=== PATIENT | male | born 1980 | race Caucasian/White ===

== ENCOUNTER 2020-07-26 08:23 | Emergency (ER) | payer OTHER ==
[2020-07-26 08:42] VITALS: BP 137/96; PULSE 87; TEMP 98.4; BMI 29.7
[2020-07-26] MEDS ORDERED: IBUPROFEN 600 MG TABLET (FP) PO ONE ×2 (08:51→09:00)
== END 2020-07-26 10:07 | disposition home or self-care (01) ==
LOC: FER 08:23
DX: M25.511 Pain in right shoulder (principal)
CPT/HCPCS: 73030-TC-RT-FY; 99283-25